=== PATIENT | female | born 1980 | race Caucasian/White ===

== ENCOUNTER 2016-05-09 19:41 | Emergency (ER) | payer BC, OTHER ==
[2016-05-09 20:53] VITALS: BP 105/77
[2016-05-09] MEDS ORDERED: traMADol TAB* 50 MG PO ONE (21:44)
[2016-05-09] MEDS ORDERED: Amoxicillin/Clavulanate TAB* 875 MG PO ONE (21:44)
--- NOTE | 2016-05-09 21:58 | UC ---
[facility] HPI - HPI Summary HPI Summary: broke lower tooth two days ago, has been chewing on left side since injury, no has pain in left upper tooth radiates to left jaw and face. no fever. - History of Current Complaint Chief Complaint: UCDentalProblem Stated Complaint: TOOTH PAIN Time Seen by Provider: 05/09/16 21:21 Hx Obtained From: Patient Hx Last Menstrual Period: 04/27/16 Onset/Duration: Sudden Onset, Lasting Days, Still Present, Worse Since - TODAY Severity: Moderate Related History: Swelling - Allergies/Home Medications Allergies/Adverse Reactions: Allergies Allergy/AdvReac Type Severity Reaction Status Date / Time No Known Allergies Allergy Verified 05/09/16 20:53 Home Medications: Home Medications Ibuprofen TAB* [Advil TAB*] 800 mg PO PRN 05/09/16 [History] PMH/Surg Hx/FS Hx/Imm Hx Previously Healthy: Yes - Surgical History Surgical History: None - Family History Known Family History: Positive: Respiratory Disease - Social History Occupation: Employed Full-time Lives: With Family Alcohol Use: Occasionally Substance Use Type: None Smoking Status (MU): Current Every Day Smoker Type: Cigarettes Amount Used/How Often: 1/2 PPD Cessation Counseling: Patient Advised to Stop Review of Systems Constitutional: Negative Skin: Negative Eyes: Negative ENT: Dental Pain Respiratory: Negative Cardiovascular: Negative Gastrointestinal: Negative Genitourinary: Negative Motor: Negative Neurovascular: Negative Musculoskeletal: Negative Neurological: Negative Psychological: Negative All Other Systems Reviewed And Are Negative: Yes Physical Exam Triage Information Reviewed: Yes Appearance: Well-Appearing, Well-Nourished, Pain Distress - MILD Vital Signs: Initial Vital Signs Temp 98.7 F 05/09/16 20:50 Pulse 74 05/09/16 20:50 Resp 16 05/09/16 20:50 BP 105/77 05/09/16 20:50 Pulse Ox 100 05/09/16 20:50 Vital Signs Reviewed: Yes Eye Exam: Normal ENT Exam: Normal ENT: Positive: Normal ENT inspection, Hearing grossly normal, Pharynx normal, TMs normal Dental: Positive: Percussion Tenderness @ - 15, 16, Dental Fracture @ - 32, Cellulitis @ - 15, 16 Neck exam: Normal Respiratory Exam: Normal Respiratory: Positive: Chest non-tender, Lungs clear, Normal breath sounds, No respiratory distress Cardiovascular Exam: Normal Cardiovascular: Positive: RRR, No Murmur, Pulses Normal, Brisk Capillary Refill Abdominal Exam: Normal Abdomen Description: Positive: Nontender, No Organomegaly Musculoskeletal Exam: Normal Musculoskeletal: Positive: Strength Intact, ROM Intact Neurological Exam: Normal Psychological Exam: Normal Skin Exam: Normal Dental Complaint Course/Dx - Differential Dx/Diagnosis Differential Diagnosis/Dx: Dental Abscess, Dental Caries, Fractured Tooth Provider Diagnoses: DENTAL FRACTURE AT #32. GINGIVAL CELLULITIS AND ODONTOGENIC PAIN #15 AND #16 Discharge - Discharge Plan Condition: Stable Disposition: HOME Prescriptions: Amoxicillin/Clavulanate TAB* [Augmentin TAB 875*] 875 mg PO BID #20 tab traMADol TAB* [Ultram*] 50 mg PO Q12H PRN #10 tab MDD TWO TABS PRN Reason: Pain Patient Education Materials: Dental Abscess (ED), Dental Caries (ED), Toothache (ED) Referrals: [facility]ERR[facility] [Outside] No Primary Care Phys,NOPCP [Primary Care Provider] - Additional Instructions: DENTAL REFERRAL SHEET GIVEN Images Dental: 1 - TENDER HERE 2 - FRACTURED TOOTH HERE
== END 2016-05-09 22:05 | disposition home or self-care (01) ==
LOC: UCEAST 19:41
DX: K03.81 Cracked tooth (principal); K05.10 Chronic gingivitis, plaque induced; F17.210 Nicotine dependence, cigarettes, uncomplicated
CPT/HCPCS: 99202; A9270-GY; G0463

== ENCOUNTER 2017-12-16 12:06 | Emergency (ER) | payer OTHER ==
[2017-12-16] MEDS ORDERED: Acetaminophen TAB* 325 MG PO ONE (13:05)
--- NOTE | 2017-12-16 13:08 | UC ---
- HPI Summary HPI Summary: Patient is a 37 y/o female who presents to the c/o left-sided lower pelvic pain. Pt sates has had to pain for a few days "ache", but it became severe this morning - pain has not improved to 1/10. Pt too APAP yesterday, nothing today. She is currently 7 weeks and has not has not had an ultrasound yet. She was recommended by her DEALER ANALYST to go to the ED for an US since they current do not have US available. PShe denies any vaginal discharge, vaginal bleeding, lightheadedness, dizziness, dysuria, or hematuria. 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 LMP 10/31/17. She currently works as a SENIOR ATTORNEY. She denies any hx of ovarian cysts. She took Tylenol yesterday but not today for her pain. Patient is worried about an ectopic . Patients medications reviewed this visit. - History of Current Complaint Chief Complaint: UCAbdominalPain Stated Complaint: LEFT PAIN IN PELVIC AREA Time Seen by Provider: 12/16/17 12:46 Hx Obtained From: Patient Chief Complaint: Pain Onset/Duration: Started Days Ago - 2 weeks ago, worse today, Worse Since Timing: Constant Current Severity: Moderate Pain Intensity: 7 Location of Pain: Left Side - Pelvis Character: Sharp Aggravating Factors: Nothing Alleviating Factors: Nothing Associated Signs and Symptoms: Negative: Urinary Symptoms, Vaginal Bleeding or Discharge - Assessment Hx Now: Yes - Allergies/Home Medications Allergies/Adverse Reactions: Allergies Allergy/AdvReac Type Severity Reaction Status Date / Time No Known Allergies Allergy Verified 12/16/17 12:33 Home Medications: Home Medications Pnv No.95/Ferrous Fum/Folic AC [ Multivitamin Tablet] 1 tab PO DAILY [History Confirmed 12/16/17] PMH/Surg Hx/FS Hx/Imm Hx Previously Healthy: Yes Endocrine History: Other Other Endocrine History: NEGATIVE: DM Cardiovascular History: Other Other Cardiovascular History: NEGATIVE: HTN - Surgical History Surgical History: Yes Surgery Procedure, Year, and Place: . APPENDECTOMY - Family History Known Family History: Positive: Respiratory Disease - Social History Occupation: Employed Full-time Lives: With Family Alcohol Use: Occasionally Substance Use Type: None Smoking Status (MU): Current Every Day Smoker Type: Cigarettes Amount Used/How Often: 1/2 PPD Review of Systems Constitutional: Negative Skin: Negative Genitourinary: Negative - Vaginal discharge, bleeding, dysuria, hematuria Musculoskeletal: Other: - Left-sided pelvic pain Neurological: Negative - Lightheadedness, dizziness All Other Systems Reviewed And Are Negative: Yes Physical Exam - Summary Physical Exam Summary: Vital Signs Reviewed: Yes A+Ox3, no distress Eyes: Conjunctiva Clear, CHARISSA. EOM intact and full ENT: Hearing grossly normal TM x 2 clear, mmoist, uvula midline, no exudate, no erythema Neck: Positive: Supple Respiratory: Positive: No respiratory distress, No accessory muscle use + CTA throughout no w/r Cardiovascular: RRR nl s1, s2 no m/r CBT <2 sec abd soft + BS nd no guarding, no distension, very mild LLQ pain with direct palp - no guarding, no rebound no CVA Musculoskeletal Exam: ESPOSITO x 4 without difficulty Strength Intact, ROM Intact Neurological: Positive: Alert, + sensation throughout Psychological: Positive: Normal Response To Family Skin: Positive: no rash, no ecchymosis Diagnostics - Radiology No standard instances Xray Interpretation: Positive (See Comments) - Patient Name: LISSETTE NAVARRO Medical Record#: [id number] Ordering Physician: Judit Phipps MD Acct.#: [id number] : 1980 Age: 37 Sex: F Location: [facility] Exam Date: 12/16/17 1301 ADM Status: [facility] Order Information: PREG TRANSVAGINAL Accession Number: [id number] CPT: 97806 INDICATION: , left lower quadrant pain. COMPARISON: There are no relevant prior studies available for comparison. TECHNIQUE: Multiple real-time transvaginal images of the pelvis were obtained. FINDINGS: This exam demonstrates an early intrauterine . The gestational sac is eccentric lesion located toward the right side and appears to be surrounded by myometrium. A pole and yolk sac are visualized. Cardiac activity is seen although unable to document a heart rate. The crown-rump length measured 0.3 cm corresponding to an estimated gestational age of 6 weeks 0 days. The mean sac diameter measured 1.16 cm corresponding to an estimate gestational age of 5 weeks 6 days. The right ovary measured 4.5 x 1.9 x 2.2 cm. The left ovary measured 3.7 x 1.7 x 2.4 cm. There is vascular flow within both ovaries. There is increased vascular resistance within the left ovary suggesting the possibility of an intermittent torsion. There is a hypervascular mass present in the right adnexal region adjacent to the uterus and superior to the ovary measuring 4.8 x 4.5 x 2.9 cm. There was a small amount of free intraperitoneal fluid in the cul-de-sac and adnexal regions. The results of this exam were discussed with the referring clinician. IMPRESSION: 1. EARLY INTRAUTERINE LOCATED ECCENTRICALLY WITHIN THE UTERUS TOWARD THE RIGHT SIDE. RECOMMEND A FOLLOW-UP PELVIC ULTRASOUND IN 1-2 WEEKS TIME. 2. NONSPECIFIC HYPERVASCULAR MASS IN THE RIGHT ADNEXAL REGION RAISING THE POSSIBILITY OF AN HETEROTOPIC . 3. INCREASED VASCULAR RESISTANCE WITHIN THE LEFT OVERLY POSSIBLY INCIDENTAL ALTHOUGH A INTERMITTENT OVARIAN TORSION CANNOT BE RULED OUT. <Electronically signed by Gopi Deleon MD in OV> 12/16/17 1435 Dictated By: Gopi Deleon MD Dictated Date/ Time: 12/16/17 1435 Transcribed Date/Time: 12/16/17 1409 Copy to: This report is only to be considered final once signed by the Provider(s) as displayed in the "<Electronically Signed by >" field (s). Absence of a signature indicates the report is in a draft status and still needs to be finalized. In the event this document was created by someone other than the signing Provider, the individual initiating the document will be listed in the "Entered by:" or "Dictated by:" lopez. 1 of 2 Radiology Interpretation Completed By: Radiologist Re-Evaluation - Re-Evaluation First Eval Re-Evaluation Time: 14:45 Comment: I called Dr. Louise Rosario, DEALER ANALYST on-call, to review ultrasound reports. After reviewing discussion, confirm patient's home number is actually her cell phone. Patient currently with minimal to no pain radiating a 110. Patient nontoxic-appearing was stable vital signs. Patient's urine was normal. Plan will be for patient to be discharged home. Dr. Khan's office will call patient for a follow-up ultrasound within one week's time. I had a very lengthy conversation with patient and very strict return precautions. Discussed with patient the finding of an IUP, the mass near the right ovary of unclear origin and as well as possibility of intermittent torsion on the left side. Patient states understanding of plan. If any pain increases patient will go immediately to emergency department. Patient understands that torsion can be an ovary threating condition. Patient knows if she has any vaginal bleeding or cramping she also emergency department. Patient has contact information for Dr. Diaz's office as well. Patient states understanding agreement with plan. Patient given a note for work today. Course/Dx - Course Course Of Treatment: Patient presents for evaluation of her left lower pelvic pain. Patient's Morgan 7 weeks by dates. Patient was sent here for CABLE SPLICER APPRENTICE to have an ultrasound is a don't have that service available today. Patient states she's had low-lying pain for couple days in her left lower pelvis area. Patient states this morning it became severe. Patient states it presents not so bad about a lot of 10. Patient without any vaginal discharge itching bleeding. Patient's with a history of miscarriages concerned this could be the case. Patient states she's never had an ectopic . Patient denies history of PID. - Diagnoses Provider Diagnoses: First trimester , Ovarian mass, right - Provider Notifications Discussed Care Of Patient With: Farida Rosario Time Discussed With Above Provider: 14:35 Discharge - Sign-Out/Discharge Documenting (check all that apply): Patient Departure All imaging exams completed and their final reports reviewed: Yes - Discharge Plan Condition: Stable Disposition: HOME Patient Education Materials: Abdominal Pain (ED), First Trimester (ED ) Forms: *Work Release Referrals: Farida Rosario MD [Medical Doctor] - Additional Instructions: There were good blood flow to both ovaries. It is possible your left ovary had decreased blood flow this morning when you pain became severe As discussed today - if you have an Increased in pain, vomiting, vaginal bleeding or ANY other concerns it is recommended you go IMMEDIATELY to the emergency department. If you come to urgent care, you will be transferred to the ED. You do have an embryo in her uterus where it is supposed to be. Based on the measurements, you are 6 weeks 2 days . As was discussed, you have an usual finding by your right ovary. It is not clear what this is at today's visit. It will be recheck in 1 week with an ultrasound. Your urine was normal and did not have signs of infection. It is okay to take Tylenol every 6 hours for pain. It is okay to use a heating pad. If you develop vaginal bleeding, increased or uncontrolled pain, vomiting, fevers or any other concerns it is recommended you go to the emergency department for further evaluation and treatment. The OB office will call you to schedule a follow-up appointment for an ultrasound in 1 week. If you have ANY questions or concerns it is recommended you call this office - Billing Disposition and Condition Condition: STABLE Disposition: Home - Attestation Statements Document Initiated by Garland: Yes Documenting Scribe: Jannet Tucker Provider For Whom Garland is Documenting (Include Credential): Judit Phipps MD Scribe Attestation: Jannet Carreno, scribed for Judit Phipps MD on 12/17/17 at 0721. Scribe Documentation Reviewed: Yes Provider Attestation: The documentation as recorded by the Jannet farrell accurately reflects the service I personally performed and the decisions made by me, Judit Phipps MD
[2017-12-16 14:31] VITALS: BP 97/45
--- NOTE | 2017-12-16 14:39 | RAD ---
INDICATION: , left lower quadrant pain. COMPARISON: There are no relevant prior studies available for comparison. TECHNIQUE: Multiple real-time transvaginal images of the pelvis were obtained. FINDINGS: This exam demonstrates an early intrauterine . The gestational sac is eccentric lesion located toward the right side and appears to be surrounded by myometrium. A pole and yolk sac are visualized. Cardiac activity is seen although unable to document a heart rate. The crown-rump length measured 0.3 cm corresponding to an estimated gestational age of 6 weeks 0 days. The mean sac diameter measured 1.16 cm corresponding to an estimate gestational age of 5 weeks 6 days. The right ovary measured 4.5 x 1.9 x 2.2 cm. The left ovary measured 3.7 x 1.7 x 2.4 cm. There is vascular flow within both ovaries. There is increased vascular resistance within the left ovary suggesting the possibility of an intermittent torsion. There is a hypervascular mass present in the right adnexal region adjacent to the uterus and superior to the ovary measuring 4.8 x 4.5 x 2.9 cm. There was a small amount of free intraperitoneal fluid in the cul-de-sac and adnexal regions. The results of this exam were discussed with the referring clinician. IMPRESSION: 1. EARLY INTRAUTERINE LOCATED ECCENTRICALLY WITHIN THE UTERUS TOWARD THE RIGHT SIDE. RECOMMEND A FOLLOW-UP PELVIC ULTRASOUND IN 1-2 WEEKS TIME. 2. NONSPECIFIC HYPERVASCULAR MASS IN THE RIGHT ADNEXAL REGION RAISING THE POSSIBILITY OF AN HETEROTOPIC . 3. INCREASED VASCULAR RESISTANCE WITHIN THE LEFT OVERLY POSSIBLY INCIDENTAL ALTHOUGH A INTERMITTENT OVARIAN TORSION CANNOT BE RULED OUT.
[2017-12-16 18:31] LABS: ABS Basophils 0 10^3/ul (0-0.2); ABS Eosinophils 0.1 10^3/ul (0-0.6); ABS Lymphocytes 3.1 10^3/ul (1.0-4.8); ABS Monocytes 0.7 10^3/ul (0-0.8); ABS Nucleated RBC 0 10^3/ul; Eosinophil % 0.6 % (0-6); Hematocrit 39 % (35-47); Hemoglobin 13.2 g/dl (12.0-16.0); Lymphocyte % 24.2 % (25-47); Mean Corpuscular HGB Conc 34 g/dl (31-36); Mean Corpuscular Hemoglobin 30 pg (27-31); Mean Corpuscular Volume 86 fL (80-97); Mean Platelet Volume 7.3 um3 (7.4-10.4); Nucleated Red Blood Cells % 0; Platelet Count 269 10^3/ul (150-450); Red Blood Count 4.46 10^6/ul (4.00-5.40); Red Cell Distribution Width 13 % (10.5-15); White Blood Count 12.9 10^3/ul (3.5-10.8)
--- NOTE | 2017-12-17 07:29 | UC ---
- Progress Note Progress Note: PLS CALL PT AND ADVISE THAT CBC SHOWS SLIGHTLY ELEVATED WBC COUNT. THIS MAY BE REACTIVE TO ACUTE CONDITION BUT SHOULD BE FOLLOWED-UP. ADVISE REPEAT WITH PCP OR OB. - JUVENTINO MORRIS MD Course/Dx - Diagnoses Provider Diagnoses: First trimester , Ovarian mass, right Discharge - Sign-Out/Discharge Documenting (check all that apply): Post-Discharge Follow Up All imaging exams completed and their final reports reviewed: Yes - Discharge Plan Condition: Stable Disposition: HOME Patient Education Materials: Abdominal Pain (ED), First Trimester (ED ) Forms: *Work Release Referrals: Farida Rosario MD [Medical Doctor] - Additional Instructions: There were good blood flow to both ovaries. It is possible your left ovary had decreased blood flow this morning when you pain became severe As discussed today - if you have an Increased in pain, vomiting, vaginal bleeding or ANY other concerns it is recommended you go IMMEDIATELY to the emergency department. If you come to urgent care, you will be transferred to the ED. You do have an embryo in her uterus where it is supposed to be. Based on the measurements, you are 6 weeks 2 days . As was discussed, you have an usual finding by your right ovary. It is not clear what this is at today's visit. It will be recheck in 1 week with an ultrasound. Your urine was normal and did not have signs of infection. It is okay to take Tylenol every 6 hours for pain. It is okay to use a heating pad. If you develop vaginal bleeding, increased or uncontrolled pain, vomiting, fevers or any other concerns it is recommended you go to the emergency department for further evaluation and treatment. The OB office will call you to schedule a follow-up appointment for an ultrasound in 1 week. If you have ANY questions or concerns it is recommended you call this office - Billing Disposition and Condition Condition: STABLE Disposition: Home
== END 2017-12-16 14:55 | disposition home or self-care (01) ==
LOC: UCEAST 12:06
DX: O26.891 Other specified pregnancy related conditions, first trimester (principal); N83.9 Noninflammatory disorder of ovary, fallopian tube and broad ligament, unspecified; Z3A.01 Less than 8 weeks gestation of pregnancy; F17.210 Nicotine dependence, cigarettes, uncomplicated
CPT/HCPCS: 36415; 76817; 81003; 85025; 99212; A9270-GY; G0463

== ENCOUNTER 2017-12-20 19:16 | Emergency (ER) | payer OTHER ==
--- NOTE | 2017-12-20 22:13 | RAD ---
EXAM: US , Transvaginal CLINICAL HISTORY: 37 years old, female; Signs and symptoms; Lmp or gestational age (in weeks): 10/31/2017; Antepartum complications; Bleeding; ; Patient HX: Bleeding today TECHNIQUE: Real-time transvaginal obstetrical ultrasound of the maternal pelvis and a first trimester with image documentation. Transvaginal imaging was used for better evaluation of the fetus and adnexa. COMPARISON: PREGTRNVAG US PREG TRANSVAGINAL 12/16/2017 1:16 PM FINDINGS: EGA: 7 weeks 1 day. SKY: 08/07/2018 (LMP = 10/31/2017). Maternal Pelvis: Uterus: Anteverted anteflexed. Measures 11.6 x 7.8 x 5.3 cm. Ovaries: Right ovary: Measures 3.2 x 2.2 x 2.0 cm for a total volume of 7.7 cc. Vascular right adnexal mass again visualized measuring 4.7 x 4.4 x 2.4 cm, previously 4.8 x 4.5 x 2.9 cm. Left ovary: Measures 3.8 x 2.1 x 2.1 cm for a total volume of 9 cc. No masses. : Living intrauterine gestation demonstrates positive heart motion with heart rate = 108 bpm. [place]-rump length = 7 mm, correlates to 6 weeks 5 days (SKY = 08/11/2018). Subchorionic hemorrhage: Small hypoechoic crescentic nonvascular collection along the anterior inferior gestational sac comprising less than 50% of its circumference measures 3.8 x 2.9 x 1.5 cm. IMPRESSION: 1. Viable intrauterine with an ultrasound age of 6 weeks 5 days which is concordant with the clinical age. 2. Small subchorionic implantation hemorrhage. 3. Stable right adnexal mass again possibly a heterotopic , primary right ovarian mass, or large corpus luteum.
--- NOTE | 2017-12-20 23:30 | ED ---
Abdominal Pain/Female - HPI Summary HPI Summary: Patient history of 7 weeks complains of vaginal spotting and mild bilateral lower abdominal cramping and mild bilateral lower back pain starting today. Denies fever, cough, sore throat, CP, SOB, N/V/D, change in urine, vaginal discharge or pain. Medical history is none. Abdominal/surgical history is none. Patient had first meeting with MEDICAID ANALYST last when she had no symptoms. Ultrasound was not done. Patient developed some left-sided abdominal pain that evening, was seen at urgent care and ultrasound was done, with positive IUP. Patient LMP October 31. Patient , history of 2 miscarriages and one elective . - History of Current Complaint Chief Complaint: EDOBProblems Stated Complaint: 7 WKS PREG/BLEEDING Time Seen by Provider: 12/20/17 22:28 Hx Obtained From: Patient Hx Last Menstrual Period: 04/27/16 Onset/Duration: Sudden Onset Timing: Intermittent Episode Lasting Severity Initially: Mild Severity Currently: Mild Pain Intensity: 2 Pain Scale Used: 0-10 Numeric Location: Diffuse, Discrete At: RLQ, Discrete At: LLQ, Suprapubic Radiates: Yes Radiates to: Back Character: Cramping Aggravating Factor(s): Nothing Alleviating Factor(s): Nothing Associated Signs and Symptoms: Positive: Back Pain, Vaginal Bleeding Allergies/Adverse Reactions: Allergies Allergy/AdvReac Type Severity Reaction Status Date / Time No Known Allergies Allergy Verified 12/16/17 12:33 PMH/Surg Hx/FS Hx/Imm Hx Endocrine/Hematology History: Denies: Hx Anticoagulant Therapy, Hx Diabetes, Hx Thyroid Disease Cardiovascular History: Denies: Hx Cardiac Arrest, Hx Hypertension Respiratory History: Denies: Hx Asthma, Hx Chronic Obstructive Pulmonary Disease (COPD) GI History: Denies: Hx Ulcer History: Denies: Hx Dialysis, Hx Renal Disease Neurological History: Denies: Hx CVA - Surgical History Surgery Procedure, Year, and Place: . APPENDECTOMY Infectious Disease History: No Infectious Disease History: Denies: Hx Hepatitis, Hx Human Immunodeficiency Virus (HIV), Traveled Outside the [place] in Last 30 Days - Family History Known Family History: Positive: Respiratory Disease - Social History Alcohol Use: Occasionally Substance Use Type: Reports: None Smoking Status (MU): Light Every Day Tobacco Smoker Type: Cigarettes Amount Used/How Often: 1/2 PPD Review of Systems Constitutional: Negative Eyes: Negative ENT: Negative Cardiovascular: Negative Respiratory: Negative Positive: Abdominal Pain Genitourinary: Other Positive: other - vaginal spotting vaginal spotting Musculoskeletal: Other Skin: Negative Neurological: Negative Psychological: Normal All Other Systems Reviewed And Are Negative: Yes Physical Exam - Summary Physical Exam Summary: Very minimal tenderness to palpation on physical exam. Triage Information Reviewed: Yes Vital Signs On Initial Exam: Initial Vitals Temp Pulse Resp BP Pulse Ox 97.5 F 110 18 115/66 100 12/20/17 19:18 12/20/17 19:18 12/20/17 19:18 12/20/17 19:18 12/20/17 19:18 Vital Signs Reviewed: Yes Appearance: Positive: Well-Appearing Skin: Positive: Warm Head/Face: Positive: Normal Head/Face Inspection Eyes: Positive: Normal Neck: Positive: Supple Respiratory/Lung Sounds: Positive: Clear to Auscultation Cardiovascular: Positive: Normal Abdomen Description: Positive: Nontender Musculoskeletal: Positive: Normal Neurological: Positive: Normal Psychiatric: Positive: Normal AVPU Assessment: Alert - Mati Coma Scale Best Eye Response: 4 - Spontaneous Best Motor Response: 6 - Obeys Commands Best Verbal Response: 5 - Oriented Coma Scale Total: 15 Diagnostics - Vital Signs Vital Signs Temp Pulse Resp BP Pulse Ox 12/20/17 19:18 97.5 F 110 18 115/66 100 - Laboratory Lab Results: Lab Results 12/20/17 12/20/17 Range/Units 21:27 21:27 TSH 1.72 (0.34-5.60) mcIU/mL Beta HCG, Quant 71770.0 H (0.0-5.0) MIU/ML Blood Type B Positive Antibody Screen Negative Lab Statement: Any lab studies that have been ordered have been reviewed, and results considered in the medical decision making process. Abdominal Pain Fem Course/Dx - Course Course Of Treatment: Patient history of 7 weeks complains of vaginal spotting and mild bilateral lower abdominal cramping and mild bilateral lower back pain starting today. Denies fever, cough, sore throat, CP, SOB, N/V/D, change in urine, vaginal discharge or pain. Medical history is none. Abdominal /surgical history is none. Patient had first meeting with MEDICAID ANALYST last when she had no symptoms. Ultrasound was not done. Patient developed some left -sided abdominal pain that evening, was seen at urgent care and ultrasound was done, with positive IUP. Patient LMP October 31. Patient , history of 2 miscarriages and one elective . Physical exam:Very minimal tenderness to palpation on physical exam. Vital signs within normal limits. Physical exam unremarkable. Ultrasound from urgent care 12/16/17 pulse positive for IUP, but also mentions rt adnexal mass which could be possible heterotopic . Ultrasound today states same rt adnexal mass is stable. No free air. Discussed patient with Dr. Rosario [facility] facilities section director for MEDICAID ANALYST who recommended patient follow-up on Wednesday at existing appointment with MEDICAID ANALYST. Patient advised of the risks of possible ectopic and advised to return for any new or concerning symptoms. Patient understands and approves plan. - Diagnoses Provider Diagnoses: Vaginal spotting, Discharge - Sign-Out/Discharge Documenting (check all that apply): Patient Departure - Discharge Plan Condition: Stable Disposition: HOME Patient Education Materials: Ectopic (DC), (ED) Referrals: Velvet Reyes MD [Primary Care Provider] - Additional Instructions: Follow-up at your appointment with MEDICAID ANALYST this Wednesday. Return to the ED for any new or worsening symptoms - Billing Disposition and Condition Condition: STABLE Disposition: Home
[2017-12-20 23:45] VITALS: BP 111/65
== END 2017-12-20 23:43 | disposition home or self-care (01) ==
LOC: ED 19:16
DX: O46.91 Antepartum hemorrhage, unspecified, first trimester (principal); M54.9 Dorsalgia, unspecified; R10.30 Lower abdominal pain, unspecified; F17.210 Nicotine dependence, cigarettes, uncomplicated; Z3A.01 Less than 8 weeks gestation of pregnancy
CPT/HCPCS: 36415; 76817; 84144; 84443; 84702; 86850; 86900; 86901; 99282